=== PATIENT | female | born 1970 | race Caucasian/White ===

== ENCOUNTER 2017-04-09 06:57 | Day surgery (SDC) | payer BC ==
--- NOTE | ~2017-04-09 | EGD ---
EGD REPORT [facility] [address] [address] NAME: LANIE ALVAREZ : [birth year] STATUS : REG [facility]#: [id number] AGE: 47 ADM/REG DATE : 04/09/17 MR#: [id number] REPORT SERV DATE: 04/09/17 DICTATED BY: FLORA BOWENS DATE: 04/09/17 REPORT STATUS : Draft TRANSCRIBED BY: [facility] DATE: 04/09/17 Endoscopy Center Patient Name: Lanie Alvarez Date of : 1970 Attending MD: FLORA BOWENS MD Procedure Date No Time: 04/09/2017 Procedure: Colonoscopy Indications: Abdominal pain in the right upper quadrant, Abnormal CT of the GI tract Referring MD: ROSETTA WELSH Medicines: Propofol per Anesthesia Complications: No immediate complications. Procedure: Pre-Anesthesia Assessment: - ASA Grade Assessment: III - A patient with severe systemic disease. After I obtained informed consent, the scope was passed under direct vision. Throughout the procedure, the patient's blood pressure, pulse, and oxygen saturations were monitored continuously. The [id number] was introduced through the anus and advanced to the ileocecal valve. The colonoscopy was performed without difficulty. The patient tolerated the procedure well. The quality of the bowel preparation was good. Findings: Diffuse moderate inflammation characterized by congestion (edema) and erosions was found at the ileocecal valve. Biopsy with a cold jumbo forceps was performed for histology. Estimated blood loss: none. The exam was otherwise without abnormality on direct and retroflexion views. Impression: - Diffuse moderate inflammation was found at the ileocecal valve secondary to colitis. Biopsied. - The examination was otherwise normal on direct and retroflexion views. - cecum photod. weithdrawl time 6 minutes. Recommendation: - Use Asacol 400 mg PO TID for 1 month. - Return to my office in 3 weeks. Procedure Code(s): --- Professional --- 17156, Colonoscopy, flexible, proximal to splenic flexure; with biopsy, single or multiple Diagnosis Code(s): --- Professional --- EGD REPORT [facility] [address] [address] NAME: LANIE ALVAREZ : [birth year] STATUS : REG [facility] PAT#: [id number] AGE: 47 ADM/REG DATE : 04/09/17 MR#: [id number] REPORT SERV DATE: 04/09/17 DICTATED BY: FLORA BOWENS DATE: 04/09/17 REPORT STATUS : Draft TRANSCRIBED BY: [employer] DATE: 04/09/17 K52.9, Noninfective gastroenteritis and colitis, unspecified R10.11, Right upper quadrant pain R93.3, Abnormal findings on diagnostic imaging of other parts of digestive tract CPT copyright 2013 [employer]. All rights reserved. The codes documented in this report are preliminary and upon label coder review may be revised to meet current compliance requirements. FLORA BOWENS MD 04/09/2017 10:31 AM This report has been signed electronically. Number of Addenda: 0 Note Initiated On: 04/09/2017 9:52 AM Scope Withdrawal Time 0 hours 9 minutes 28 seconds [address] [address]
--- NOTE | ~2017-04-09 | EGD ---
EGD REPORT [facility] [address] [address] NAME: LANIE ALVAREZ : [birth year] STATUS : REG [facility]#: [id number] AGE: 47 ADM/REG DATE : 04/09/17 MR#: [id number] REPORT SERV DATE: 04/09/17 DICTATED BY: FLORA BOWENS DATE: 04/09/17 REPORT STATUS : Draft TRANSCRIBED BY: [facility] DATE: 04/09/17 Endoscopy Center Patient Name: Lanie Alvarez Date of : 1970 Attending MD: FLORA BOWENS MD Procedure Date No Time: 04/09/2017 Procedure: Upper GI endoscopy Indications: Dysphagia Referring MD: ROSETTA WELSH Medicines: Propofol per Anesthesia Complications: No immediate complications. Procedure: Pre-Anesthesia Assessment: - ASA Grade Assessment: III - A patient with severe systemic disease. After obtaining informed consent, the endoscope was passed under direct vision. Throughout the procedure, the patient's blood pressure, pulse, and oxygen saturations were monitored continuously. The GIF [id number] was introduced through the mouth, and advanced to the third part of duodenum. The upper GI endoscopy was accomplished without difficulty. The patient tolerated the procedure well. Findings: A benign-appearing, intrinsic mild stenosis measuring less than one cm (in length) x 1.3 cm (inner diameter) was found at the gastroesophageal junction and was traversed. A guidewire was placed and the scope was withdrawn. Dilation was performed with a Savary dilator with no resistance at 45 Fr. Estimated blood loss: none. The exam was otherwise without abnormality. Impression: - Benign-appearing esophageal stricture. Dilated. - The examination was otherwise normal. Recommendation: - Return to my office in 3 weeks. Procedure Code(s): --- Professional --- 31220, Esophagogastroduodenoscopy, flexible, transoral; with insertion of guide wire followed by passage of dilator(s) through esophagus over guide wire Diagnosis Code(s): --- Professional --- K22.2, Esophageal obstruction R13.10, Dysphagia, unspecified EGD REPORT [facility] [address] [address] NAME: LANIE ALVAREZ : [birth year] STATUS : REG [facility] PAT#: [id number] AGE: 47 ADM/REG DATE : 04/09/17 MR#: [id number] REPORT SERV DATE: 04/09/17 DICTATED BY: FLORA BOWENS. DATE: 04/09/17 REPORT STATUS : Draft TRANSCRIBED BY: [employer] DATE: 04/09/17 CPT copyright 2013 [employer]. All rights reserved. The codes documented in this report are preliminary and upon senior data modeler review may be revised to meet current compliance requirements. FLORA BOWENS MD 04/09/2017 10:26 AM This report has been signed electronically. Number of Addenda: 0 Note Initiated On: 04/09/2017 9:51 AM Scope Withdrawal Time 0 hours 0 minutes 0 seconds [address] [address]
[~2017-04-09 06:57] MED LIST: ASAB PO; COREG3 PO; DIOVAN HC1 PO; GYNODIOL2 MG PO; IMDUR30 PO; LEVSINTAB PO; MAX25 PO; MAXZIDE PO; MOBIC7.5 PO; MULTIVIT/MIN PO; PREVALITE4 G1 PO; PROAIR HFA INH; X5 PO
[2017-04-20] MEDS ORDERED: ESTRADIOL2 MG PO (17:21)
[2017-04-20] MEDS ORDERED: MOBIC7.5 PO (17:21)
[2017-04-20] MEDS ORDERED: NORCO1 TA1 PO (17:21)
[2017-04-20] MEDS ORDERED: DIOVAN HC1 PO (17:21)
[2017-04-20] MEDS ORDERED: B121000P IM (17:22)
[2017-04-20] MEDS ORDERED: PROAIR HFA INH (17:22)
[2017-04-20] MEDS ORDERED: ENTOCORT3 PO (17:22)
[2017-04-22] MEDS ORDERED: BACDS PO (18:26)
[2017-04-22] MEDS ORDERED: PCET PO (18:26)
[2017-05-24] MEDS ORDERED: DSS PO (07:56)
[2017-05-24] MEDS ORDERED: PERCOCET 7.5/321 TAB PO (07:56)
== END 2017-04-09 23:59 | disposition home or self-care (01) ==
LOC: DMU 06:57
PROVIDERS: Internal Medicine Gastroenterology
PROC: 0DBC8ZX Excision of Ileocecal Valve, Via Natural or Artificial Opening Endoscopic, Diagnostic (ICD-10-PCS; principal; 2017-04-09 08:30)
PROC: 0D748ZZ Dilation of Esophagogastric Junction, Via Natural or Artificial Opening Endoscopic (ICD-10-PCS; 2017-04-09 08:30)
DX: K22.2 Esophageal obstruction (principal); K52.9 Noninfective gastroenteritis and colitis, unspecified; I10 Essential (primary) hypertension; J45.909 Unspecified asthma, uncomplicated; Z91.09 Other allergy status, other than to drugs and biological substances; Z87.442 Personal history of urinary calculi; Z90.49 Acquired absence of other specified parts of digestive tract; Z90.710 Acquired absence of both cervix and uterus; Z79.818 Long term (current) use of other agents affecting estrogen receptors and estrogen levels; Z79.1 Long term (current) use of non-steroidal anti-inflammatories (NSAID); Z79.899 Other long term (current) drug therapy; Z98.890 Other specified postprocedural states
CPT/HCPCS: 88305